=== PATIENT | male | born 1950 | race Caucasian/White ===

== ENCOUNTER 2017-08-20 15:20 | Emergency (ER) | payer MEDICARE ==
[~2017-08-20] VITALS: Ht 180.3 cm; Wt 111.0 kg
[2017-08-20] MEDS ORDERED: normal saline 1000ML IV soln IVB ONE (15:30)
[2017-08-20 15:55] LABS: BASOPHILS % (AUTO) 0.3 % (0-1); EOSINOPHILS # (AUTO) 0.2 X10'3 (0-0.9); EOSINOPHILS % (AUTO) 1.8 % (0-6); HEMATOCRIT 58.1 % (42.0-52.0); LYMPHOCYTES # (AUTO) 0.6 X10'3 (1.1-4.8); LYMPHOCYTES % (AUTO) 5.6 % (21-51); MEAN CORPUSCULAR HEMOGLOBIN 30.2 PG (27.0-31.0); MEAN CORPUSCULAR HGB CONC 35.1 % (33.0-36.5); MEAN CORPUSCULAR VOLUME 86.3 FL (78-98); MEAN PLATELET VOLUME 7.2 FL (7.4-10.4); MONOCYTES # (AUTO) 0.3 X10'3 (0-0.9); MONOCYTES % (AUTO) 3.3 % (2-12); NEUTROPHILS # (AUTO) 9.3 X10'3 (1.8-7.7); PLATELET COUNT 248 X10'3 (140-440); RED BLOOD COUNT 6.73 X10'6 (4.70-6.10); RED CELL DISTRIBUTION WIDTH 13.9 % (11.5-14.5); WHITE BLOOD COUNT 10.4 X10'3 (4.5-11.0)
[2017-08-20 15:57] LABS: HEMOGLOBIN 20.4 g/dl (14.0-17.9)
[2017-08-20 16:13] LABS: ALANINE AMINOTRANSFERASE 60 U/L (12-78); ALBUMIN 3.4 G/DL (3.4-5.0); ALBUMIN/GLOBULIN RATIO 0.8 (1.1-1.5); ALKALINE PHOSPHATASE 191 IU/L (46-116); ANION GAP 11 (8-16); ASPARTATE AMINO TRANSFERASE 45 U/L (10-37); BILIRUBIN,TOTAL 1.5 MG/DL (0.1-1.0); BLOOD UREA NITROGEN 25 MG/DL (7-18); BUN/CREATININE RATIO 16.4 (5.4-32.0); CALCIUM 9.2 MG/DL (8.5-10.1); CHLORIDE 98 MMOL/L (99-107); CREATININE 1.52 MG/DL (0.60-1.10); GLUCOSE 255 MG/DL (70-104); MAGNESIUM 1.4 MG/DL (1.5-2.4); PHOSPHORUS 1.9 MG/DL (2.3-4.5); POTASSIUM 4.7 MMOL/L (3.5-5.1); SODIUM 135 MMOL/L (135-145); TOTAL CARBON DIOXIDE 26.1 MMOL/L (24-32); TOTAL PROTEIN 7.7 G/DL (6.4-8.2); TROPONIN I < 0.04 NG/ML (0.0-0.05); eGFR 46 ML/MIN
[2017-08-20] MEDS ORDERED: magnesium 2GM in 50ml NS 50 ML IV ONE (16:15)
[2017-08-20] MEDS ORDERED: calcium acetate 667mg (PhosLO) capsule PO ONE (16:15)
[2017-08-20 17:09] LABS: HEMATOCRIT 55.2 % (42.0-52.0); MEAN CORPUSCULAR HEMOGLOBIN 29.9 PG (27.0-31.0); MEAN CORPUSCULAR HGB CONC 34.4 % (33.0-36.5); MEAN PLATELET VOLUME 7.2 FL (7.4-10.4); PLATELET COUNT 251 X10'3 (140-440); RED BLOOD COUNT 6.35 X10'6 (4.70-6.10); RED CELL DISTRIBUTION WIDTH 13.4 % (11.5-14.5); WHITE BLOOD COUNT 11.1 X10'3 (4.5-11.0)
[2017-08-20 17:50] LABS: CLARITY,URINE CLEAR (Clear); COLOR,URINE YELLOW (Yellow); GLUCOSE, URINE >=1000 mg/dl (Neg); KETONES,URINE NEGATIVE (Neg); LEUKOCYTE ESTERASE ,URINE NEGATIVE (Neg); NITRITES, URINE NEGATIVE (Neg); OCCULT BLOOD,URINE SMALL (Neg); PROTEIN,URINE 100 mg/dl (Neg)
[2017-08-20 17:58] LABS: UA COLLECTION TYPE URINAL
[2017-08-20 17:59] LABS: BACTERIA,URINE NONE SEEN /HPF (Neg); MUCUS STRANDS NONE SEEN /LPF (Neg); RBC,URINE NONE SEEN /HPF (0-2); SQUAMOUS EPITHELIAL CELL,UR FEW /LPF (FEW); WBC,URINE NONE SEEN /HPF (0-4)
[2017-08-20] MEDS ORDERED: labetalol 20mg/4ml (5mg/ml) syringe IV ONE (18:20)
[2017-08-20] MEDS ORDERED: ketorolac trometh. 30mg/ml inj. IV ONE (18:20)
[2017-08-20] MEDS ORDERED: acetaminophen 325mg tablet PO ONE (18:20)
[2017-08-20] MEDS ORDERED: normal saline 1000ml 1,000 ML IV ONE (18:45)
[2017-08-20 19:04] LABS: D-DIMER 0.53 MG/L FEU (0-0.50)
[2017-08-20 19:29] VITALS: BP 155/110
[2017-08-20] MEDS ORDERED: TAM75C PO (19:37)
[2017-08-20] MEDS ORDERED: oseltamivir phos 75mg capsule PO ONE (19:40)
[2017-08-20] MEDS ORDERED: levoFLOXACIN 750MG TABLET PO ONE (22:25)
[2017-08-20] MEDS ORDERED: LEVO750T21 PO (22:26)
== END 2017-08-20 20:17 | disposition home or self-care (01) ==
LOC: ER 15:21
DX: D75.1 Secondary polycythemia (principal); J18.9 Pneumonia, unspecified organism; R53.1 Weakness; I10 Essential (primary) hypertension; E11.9 Type 2 diabetes mellitus without complications; I25.2 Old myocardial infarction; Z79.899 Other long term (current) drug therapy
CPT/HCPCS: 36415; 71045; 80053; 81001; 82948; 83735; 84100; 84484; 85025; 85027; 85379; 87502; 87503; 93005; 96361; 96365; 96375; 99285; J1885; J3475; J3490; J7030

== ENCOUNTER 2019-04-07 15:16 | Inpatient (IN) | payer MEDICARE, OTHER ==
[~2019-04-07] VITALS: Ht 167.6 cm; Wt 101.5 kg
--- NOTE | 2019-04-07 15:43 | NUR ---
awaiting ed provider.
[2019-04-07 15:57] LABS: BASOPHILS # (AUTO) 0.2 X10'3 (0-0.2); EOSINOPHILS # (AUTO) 0.7 X10'3 (0-0.9); HEMATOCRIT 49.1 % (42.0-52.0); HEMOGLOBIN 17.1 g/dl (14.0-17.9); MEAN CORPUSCULAR HEMOGLOBIN 31.3 PG (27.0-31.0); MONOCYTES # (AUTO) 1.1 X10'3 (0-0.9)
[2019-04-07 15:59] LABS: EOSINOPHILS % (AUTO) 3.8 % (0-6); LYMPHOCYTES # (AUTO) 2.5 X10'3 (1.1-4.8); LYMPHOCYTES % (AUTO) 14.4 % (21-51); MEAN CORPUSCULAR HGB CONC 34.9 g/dL (33.0-36.5); MEAN CORPUSCULAR VOLUME 89.7 FL (78-98); MEAN PLATELET VOLUME 7.2 FL (7.4-10.4); MONOCYTES % (AUTO) 6.2 % (2-12); NEUTROPHILS # (AUTO) 12.8 X10'3 (1.8-7.7); NEUTROPHILS % (AUTO) 74.6 % (42-75); PLATELET COUNT 359 X10'3 (140-440); RED BLOOD COUNT 5.48 X10'6 (4.70-6.10); RED CELL DISTRIBUTION WIDTH 13.2 % (11.5-14.5); WHITE BLOOD COUNT 17.2 X10'3 (4.5-11.0)
[2019-04-07] MEDS ORDERED: levoFLOXACIN-Levaquin 750MG/D5 150 ML IV ONE (16:10)
[2019-04-07 16:14] LABS: ALANINE AMINOTRANSFERASE 28 U/L (12-78); ALBUMIN 3.5 G/DL (3.4-5.0); ALBUMIN/GLOBULIN RATIO 0.9 (1.1-1.5); ALKALINE PHOSPHATASE 183 IU/L (46-116); ANION GAP 7 (8-16); ASPARTATE AMINO TRANSFERASE 26 U/L (10-37); BILIRUBIN,TOTAL 0.8 MG/DL (0.1-1.0); BLOOD UREA NITROGEN 26 MG/DL (7-18); BUN/CREATININE RATIO 17.7 (5.4-32.0); CALCIUM 9.3 MG/DL (8.5-10.1); CHLORIDE 100 MMOL/L (99-107); CREATININE 1.47 MG/DL (0.60-1.10); GLUCOSE 168 MG/DL (70-104); POTASSIUM 4.5 MMOL/L (3.5-5.1); SODIUM 136 MMOL/L (135-145); TOTAL CARBON DIOXIDE 28.9 MMOL/L (24-32); TOTAL PROTEIN 7.4 G/DL (6.4-8.2); eGFR 47 ML/MIN
[2019-04-07 16:16] LABS: MAGNESIUM 1.7 MG/DL (1.5-2.4)
--- NOTE | 2019-04-07 16:35 | NUR ---
urine sent to the lab.
[2019-04-07 16:39] LABS: CLARITY,URINE CLEAR (Clear); COLOR,URINE YELLOW (Yellow); GLUCOSE, URINE NEGATIVE (Neg); KETONES,URINE NEGATIVE (Neg); LEUKOCYTE ESTERASE ,URINE NEGATIVE (Neg); NITRITES, URINE NEGATIVE (Neg); OCCULT BLOOD,URINE NEGATIVE (Neg); PROTEIN,URINE 100 mg/dl (Neg)
[2019-04-07 16:43] LABS: UA COLLECTION TYPE CLN CATCH MIDSTREAM
[2019-04-07 16:44] LABS: BACTERIA,URINE NONE SEEN /HPF (Neg); MUCUS STRANDS FEW /LPF (Neg); RBC,URINE NONE SEEN /HPF (0-2); SQUAMOUS EPITHELIAL CELL,UR FEW /LPF (FEW); WBC,URINE 0-4 /HPF (0-4)
[2019-04-07 16:45] LABS: COARSE GRANULAR CAST 0-3 /LPF (NEGATIVE)
[2019-04-07] MEDS ORDERED: METO100T14 PO (17:14)
[2019-04-07] MEDS ORDERED: INSU100V9 SQ (17:14)
[2019-04-07] MEDS ORDERED: RANI150T8 PO (17:14)
[2019-04-07] MEDS ORDERED: AMLO10TA PO (17:14)
[2019-04-07] MEDS ORDERED: ATOR40TA71 PO (17:14)
[2019-04-07] MEDS ORDERED: INSU100C10 SQ (17:14)
[2019-04-07] MEDS ORDERED: ROPI1TAB4 PO (17:14)
[2019-04-07] MEDS ORDERED: LOSA50TA64 PO (17:14)
[2019-04-07] MEDS ORDERED: OXYC-145 PO (17:14)
[2019-04-07] MEDS ORDERED: MESSAGE TO PHARMACY PO ONE (17:30)
[2019-04-07] MEDS ORDERED: ondansetron/PF 4mg/2ml inj IV PRN (17:30)
[2019-04-07] MEDS ORDERED: morphine 2 MG/ML inj. syringe IV PRN ×2 (17:30)
[2019-04-07] MEDS ORDERED: glucagon, human recombinant 1mg kit SUBCUT PRN (17:30)
[2019-04-07] MEDS ORDERED: ondansetron/PF 4mg/2ml inj IV ONE (17:30)
[2019-04-07] MEDS ORDERED: dextrose 50%-water 50ml dispensing syringe IV PRN ×2 (17:30)
[2019-04-07] MEDS ORDERED: morphine 4 MG/ML inj SYRINge IV ONE (17:30)
[2019-04-07] MEDS ORDERED: mag hydrox/Alum hydrox/simeth 30ml oral suspension PO PRN (17:30)
[2019-04-07] MEDS ORDERED: acetaminophen 325mg tablet PO PRN (17:30)
[2019-04-07] MEDS ORDERED: dextrose ORAL solution 15 GM/59 ML bottle PO PRN ×2 (17:30)
[2019-04-07] MEDS ORDERED: magnesium hydroxide 30ml (MOM) UD suspension PO PRN (17:30)
[2019-04-07 18:47] LABS: HEMOGLOBIN A1C 7.2 % (4.5-6.2)
--- NOTE | 2019-04-07 18:52 | NUR ---
PT STATES THAT HE TAKES 54 UNITS LANTUS IN THE MORNING AND THEN AND ADDITIONAL 15 UNITS AFTER BREAKFAST.
[2019-04-07] MEDS: acetaminophen 325mg tablet PO PRN (19:06)
--- NOTE | 2019-04-07 19:46 | NUR ---
Received report from Светлана GALINDO pt arrived via gurney, ambulated to bed, put pt on 3L of O2 via NC, oriented pt to room, performed two electrical contacts adjuster
[2019-04-07 20:09] VITALS: BP 150/76
[2019-04-07] MEDS: insulin glargine (Lantus) pen - multi-dose SQ SCH (21:00)
[2019-04-07] MEDS: HYDROcodone/acetaminophen 5mg/325mg tablet PO PRN (21:23)
[2019-04-08] VITALS: BP 97/59
[2019-04-08 05:25] LABS: BASOPHILS # (AUTO) 0.1 X10'3 (0-0.2); BASOPHILS % (AUTO) 0.5 % (0-1); EOSINOPHILS # (AUTO) 0.7 X10'3 (0-0.9); EOSINOPHILS % (AUTO) 6.3 % (0-6); HEMATOCRIT 41.1 % (42.0-52.0); HEMOGLOBIN 14.6 g/dl (14.0-17.9); LYMPHOCYTES # (AUTO) 2.7 X10'3 (1.1-4.8); LYMPHOCYTES % (AUTO) 23.5 % (21-51); MEAN CORPUSCULAR HEMOGLOBIN 31.6 PG (27.0-31.0); MEAN CORPUSCULAR HGB CONC 35.4 g/dL (33.0-36.5); MEAN CORPUSCULAR VOLUME 89.1 FL (78-98); MEAN PLATELET VOLUME 7.3 FL (7.4-10.4); MONOCYTES # (AUTO) 0.9 X10'3 (0-0.9); NEUTROPHILS # (AUTO) 7.2 X10'3 (1.8-7.7); NEUTROPHILS % (AUTO) 61.7 % (42-75); PLATELET COUNT 261 X10'3 (140-440); RED BLOOD COUNT 4.61 X10'6 (4.70-6.10); RED CELL DISTRIBUTION WIDTH 13.1 % (11.5-14.5); WHITE BLOOD COUNT 11.6 X10'3 (4.5-11.0)
[2019-04-08 05:29] LABS: ALBUMIN 2.7 G/DL (3.4-5.0); ANION GAP 7 (8-16); BLOOD UREA NITROGEN 29 MG/DL (7-18); CHLORIDE 102 MMOL/L (99-107); CREATININE 1.45 MG/DL (0.60-1.10); GLUCOSE 134 MG/DL (70-104); POTASSIUM 4.4 MMOL/L (3.5-5.1); SODIUM 136 MMOL/L (135-145); TOTAL CARBON DIOXIDE 27.1 MMOL/L (24-32); eGFR 48 ML/MIN
--- NOTE | 2019-04-08 06:38 | NUR ---
Gave report to Alpesh GALINDO pt is sitting on side of bed on 2.5L of O2 via NC
--- NOTE | 2019-04-08 06:40 | NUR ---
Patient in room [facility]. I have received report from Kindra GALINDO and had the opportunity to ask questions and assume patient care.
[2019-04-08 08:00] VITALS: BP 162/78
[2019-04-08] MEDS ORDERED: levoFLOXACIN-Levaquin 750MG/D5 150 ML IV SCH (08:00)
--- NOTE | 2019-04-08 09:03 | NUR ---
promotional table spacer PAGER ID: [phone] MESSAGE: RE: ROOM 340B ЮлияJon arteaga Please address med rec. Pt requesting home meds. Thank you Alpesh GALINDO [phone]
[2019-04-08] MEDS: enoxaparin 40mg/0.4ml syringe SUBCUT SCH (09:12)
[2019-04-08 11:00] VITALS: BP 144/72
[2019-04-08] MEDS ORDERED: oxyCODONE/APAP 5-325mg tablet PO PRN (11:05)
[2019-04-08] MEDS: ROPINIRole 1mg tablet PO SCH ×2 (15:57→19:29)
[2019-04-08] MEDS: insulin Lispro (HumaLOG) vial - multi-dose SQ SCH (18:08)
--- NOTE | 2019-04-08 18:34 | NUR ---
Patient in room [facility]. I have received report from SRINIVAS GALINDO and had the opportunity to ask questions and assume patient care. Addendum: 04/08/19 at 1834 by Madelin Lewis RN Amended: Links added.
--- NOTE | 2019-04-08 18:34 | NUR ---
Problems reprioritized. Patient report given, questions answered & plan of care reviewed with Madelin GALINDO.
[2019-04-08] MEDS: furosemide 20 MG/2 ML vial IV SCH (19:27)
[2019-04-08] MEDS: famotidine 20mg tablet PO SCH (19:29)
[2019-04-08] MEDS: lactobacillus rhamnosus 10,000 MMU CELLS/CAPSULE PO SCH (19:29)
[2019-04-08] MEDS: metoprolol tartrate 50mg tablet PO SCH (19:31)
[2019-04-08 20:00] VITALS: BP 133/81
[2019-04-08] MEDS ORDERED: ROPINIRole 1mg tablet PO SCH (20:00)
--- NOTE | 2019-04-08 20:35 | NUR ---
Dr Cross called pt sob with exertion and sitting edge of bed. heasrt rate 120"-140's due to this recieved Rt order of zopinex 0.63 Q6 prn
--- NOTE | 2019-04-08 21:25 | NUR ---
Rt in to evaluate pt and due tx.
[2019-04-08] MEDS: insulin glargine (Lantus) pen - multi-dose SQ SCH (22:00)
[2019-04-08] MEDS: losartan 50mg tablet PO SCH (22:01)
[2019-04-08] MEDS: HYDROcodone/acetaminophen 5mg/325mg tablet PO PRN (22:06)
--- NOTE | 2019-04-08 22:08 | NUR ---
pt mredicated for pain 09/16. tele said heart rate in 90's at this time.
--- NOTE | 2019-04-08 22:11 | NUR ---
PT SAT UP TO VOID HEART RATE WENT UP TO 130-140"S WITH THIS.
--- NOTE | 2019-04-08 23:27 | NUR ---
dR Britton PAGED AND ORDER FOR STRAIGHT CATH RECIEVED FOR THIS PT BLADDER SCAN OF [phone] IN THERE. PT UNABLE TO PEE AND EVERYTIME HE DOES OR ATTEMPTS HEART RATE INCREASES.
--- NOTE | 2019-04-08 23:29 | NUR ---
PT STRAIGHT CATH AT THIS TIME.
--- NOTE | 2019-04-08 23:42 | NUR ---
STRAIGHT CATH GOT 400 URINE OUT.
[2019-04-09] VITALS: BP 128/76
--- NOTE | 2019-04-09 01:25 | NUR ---
pt resting eyes closed without s&s of distress.
[2019-04-09] MEDS: levalbuterol 0.63mg/3ml nebule IH SCH ×4 (02:35→21:04)
--- NOTE | 2019-04-09 03:15 | NUR ---
pt per request put on bedpan and another warm pack made for the back of his neck. pt stated that it really helped. Addendum: 04/09/19 at 0316 by Madelin Lewis RN entry on wrong pt. resting eyes closed without changes. Addendum: 04/09/19 at 0419 by Madelin Lewis RN wring pt.
--- NOTE | 2019-04-09 03:35 | NUR ---
pt unable to void bladder scanned 250cc in there. will recheck later on void and rescan.
--- NOTE | 2019-04-09 05:50 | NUR ---
lab in pt unable to pee. scanned 459cc urine. straight cath done obtained 475. pt tolerated well. will report this to dayshift.
--- NOTE | 2019-04-09 06:17 | NUR ---
Patient in room [facility]. I have received report from sulema GALINDO and had the opportunity to ask questions and assume patient care.
[2019-04-09 06:57] LABS: BASOPHILS # (AUTO) 0.1 X10'3 (0-0.2); BASOPHILS % (AUTO) 0.5 % (0-1); EOSINOPHILS # (AUTO) 0.7 X10'3 (0-0.9); EOSINOPHILS % (AUTO) 6.4 % (0-6); HEMATOCRIT 42.3 % (42.0-52.0); HEMOGLOBIN 14.7 g/dl (14.0-17.9); LYMPHOCYTES # (AUTO) 2.3 X10'3 (1.1-4.8); LYMPHOCYTES % (AUTO) 21.3 % (21-51); MEAN CORPUSCULAR HEMOGLOBIN 31.3 PG (27.0-31.0); MEAN CORPUSCULAR HGB CONC 34.7 g/dL (33.0-36.5); MEAN CORPUSCULAR VOLUME 90.3 FL (78-98); MEAN PLATELET VOLUME 7.5 FL (7.4-10.4); MONOCYTES # (AUTO) 0.9 X10'3 (0-0.9); MONOCYTES % (AUTO) 8.6 % (2-12); NEUTROPHILS # (AUTO) 6.9 X10'3 (1.8-7.7); NEUTROPHILS % (AUTO) 63.2 % (42-75); PLATELET COUNT 276 X10'3 (140-440); RED BLOOD COUNT 4.69 X10'6 (4.70-6.10); WHITE BLOOD COUNT 10.9 X10'3 (4.5-11.0)
[2019-04-09 07:00] VITALS: BP 113/59
[2019-04-09 07:08] LABS: ALBUMIN 2.8 G/DL (3.4-5.0); ANION GAP 7 (8-16); BLOOD UREA NITROGEN 28 MG/DL (7-18); BUN/CREATININE RATIO 18.9 (5.4-32.0); CALCIUM 8.6 MG/DL (8.5-10.1); CHLORIDE 101 MMOL/L (99-107); CREATININE 1.48 MG/DL (0.60-1.10); GLUCOSE 125 MG/DL (70-104); POTASSIUM 4.5 MMOL/L (3.5-5.1); SODIUM 136 MMOL/L (135-145); TOTAL CARBON DIOXIDE 27.8 MMOL/L (24-32); eGFR 47 ML/MIN
--- NOTE | 2019-04-09 07:10 | NUR ---
Problems reprioritized. Patient report given, questions answered & plan of care reviewed with Payal Castillo. Addendum: 04/09/19 at 0711 by Madelin Lewis RN Amended: Links added.
[2019-04-09] MEDS: furosemide 20 MG/2 ML vial IV SCH ×2 (07:31→19:35)
[2019-04-09] MEDS: lactobacillus rhamnosus 10,000 MMU CELLS/CAPSULE PO SCH ×2 (07:32→19:35)
[2019-04-09] MEDS: famotidine 20mg tablet PO SCH ×2 (07:32→19:34)
[2019-04-09] MEDS: metoprolol tartrate 50mg tablet PO SCH ×2 (07:40→19:49)
[2019-04-09] MEDS: atorvastatin 20mg tablet PO SCH (07:41)
[2019-04-09] MEDS: enoxaparin 40mg/0.4ml syringe SUBCUT SCH (07:42)
[2019-04-09 08:00] VITALS: BP 154/78
[2019-04-09 11:00] VITALS: BP 135/75
[2019-04-09] MEDS: tamsulosin 0.4mg capsule PO SCH (11:52)
--- NOTE | 2019-04-09 13:09 | NUR ---
patient seen by Dr English , commenced on flomax for BPH. will continue all other cares. Managing to Void per urinal.
--- NOTE | 2019-04-09 13:14 | NUR ---
Problems reprioritized. Patient report given, questions answered & plan of care reviewed with Brynn GALINDO.
[2019-04-09] MEDS: insulin Lispro (HumaLOG) vial - multi-dose SQ SCH ×2 (13:26→18:24)
--- NOTE | 2019-04-09 13:29 | NUR ---
Patient in room [facility]. I have received report from Payal GALINDO and had the opportunity to ask questions and assume patient care.
[2019-04-09 18:00] VITALS: BP 137/76
--- NOTE | 2019-04-09 18:25 | NUR ---
Problems reprioritized. Patient report given, questions answered & plan of care reviewed with Torey GALINDO.
--- NOTE | 2019-04-09 18:49 | NUR ---
Patient in room [facility]. I have received report from JOSIE Hardin and had the opportunity to ask questions and assume patient care.
[2019-04-09] MEDS: acetaminophen 325mg tablet PO PRN (19:01)
[2019-04-09] MEDS: ROPINIRole 1mg tablet PO SCH (19:33)
--- NOTE | 2019-04-09 20:00 | NUR ---
Patients hand and feet look edematous.Patient states; They have always looked like this. I take after my dad." Addendum: 04/10/19 at 0008 by Torey Woods RN Amended: Links added.
[2019-04-09] MEDS: insulin glargine (Lantus) pen - multi-dose SQ SCH (20:50)
[2019-04-09] MEDS: losartan 50mg tablet PO SCH (20:51)
[2019-04-09 23:54] VITALS: BP 112/64
[2019-04-10] MEDS: levalbuterol 0.63mg/3ml nebule IH SCH ×2 (03:54→08:59)
[2019-04-10 05:22] LABS: BASOPHILS # (AUTO) 0.1 X10'3 (0-0.2); BASOPHILS % (AUTO) 0.9 % (0-1); EOSINOPHILS # (AUTO) 0.8 X10'3 (0-0.9); HEMATOCRIT 42.8 % (42.0-52.0); LYMPHOCYTES # (AUTO) 2.4 X10'3 (1.1-4.8); LYMPHOCYTES % (AUTO) 21.3 % (21-51); MEAN CORPUSCULAR HEMOGLOBIN 31.4 PG (27.0-31.0); MEAN CORPUSCULAR HGB CONC 35.1 g/dL (33.0-36.5); MEAN CORPUSCULAR VOLUME 89.4 FL (78-98); MEAN PLATELET VOLUME 7.6 FL (7.4-10.4); MONOCYTES % (AUTO) 8.7 % (2-12); NEUTROPHILS % (AUTO) 62.1 % (42-75); PLATELET COUNT 253 X10'3 (140-440); RED BLOOD COUNT 4.78 X10'6 (4.70-6.10); RED CELL DISTRIBUTION WIDTH 12.7 % (11.5-14.5); WHITE BLOOD COUNT 11.3 X10'3 (4.5-11.0)
[2019-04-10 05:30] LABS: ALBUMIN 2.9 G/DL (3.4-5.0); ANION GAP 7 (8-16); BLOOD UREA NITROGEN 33 MG/DL (7-18); BUN/CREATININE RATIO 20.1 (5.4-32.0); CALCIUM 8.9 MG/DL (8.5-10.1); CHLORIDE 101 MMOL/L (99-107); CREATININE 1.64 MG/DL (0.60-1.10); GLUCOSE 141 MG/DL (70-104); POTASSIUM 4.4 MMOL/L (3.5-5.1); SODIUM 136 MMOL/L (135-145); TOTAL CARBON DIOXIDE 27.6 MMOL/L (24-32); eGFR 42 ML/MIN
[2019-04-10] MEDS: acetaminophen 325mg tablet PO PRN (06:16)
--- NOTE | 2019-04-10 06:37 | NUR ---
Problems reprioritized. Patient report given, questions answered & plan of care reviewed with JOSIE Maharaj.
--- NOTE | 2019-04-10 06:52 | NUR ---
Patient in room [facility]. I have received report from JOSIE thomas and had the opportunity to ask questions and assume patient care.
[2019-04-10 07:00] VITALS: BP 101/65
[2019-04-10 07:31] VITALS: BP 101/65
[2019-04-10] MEDS: furosemide 20 MG/2 ML vial IV SCH (07:52)
[2019-04-10] MEDS: tamsulosin 0.4mg capsule PO SCH (07:53)
[2019-04-10] MEDS: lactobacillus rhamnosus 10,000 MMU CELLS/CAPSULE PO SCH (07:53)
[2019-04-10] MEDS: famotidine 20mg tablet PO SCH (07:53)
[2019-04-10] MEDS: atorvastatin 20mg tablet PO SCH (07:53)
[2019-04-10] MEDS: metoprolol tartrate 50mg tablet PO SCH (07:57)
[2019-04-10] MEDS: enoxaparin 40mg/0.4ml syringe SUBCUT SCH (07:58)
[2019-04-10] MEDS ORDERED: levoFLOXACIN-Levaquin 750MG/D5 150 ML IV SCH (08:00)
[2019-04-10] MEDS: ROPINIRole 1mg tablet PO SCH (08:01)
[2019-04-10] MEDS: insulin Lispro (HumaLOG) vial - multi-dose SQ SCH (09:11)
[2019-04-10] MEDS: HYDROcodone/acetaminophen 5mg/325mg tablet PO PRN (09:19)
[2019-04-10] MEDS ORDERED: LEVO750T21 PO (09:20)
[2019-04-10] MEDS ORDERED: tamsulosin capsule PO (09:20)
[2019-04-10] MEDS ORDERED: FURO40TA4 PO (09:20)
[2019-04-10 11:00] VITALS: BP 90/50
== END 2019-04-10 12:50 | disposition home or self-care (01) | DRG 291 ==
LOC: ER 15:17 → ED HOLD 17:27 → SUR 3N 19:14
PROVIDERS: ADMIT Internal Medicine; ATTEND Internal Medicine
DX: I13.0 Hypertensive heart and chronic kidney disease with heart failure and stage 1 through stage 4 chronic kidney disease, or unspecified chronic kidney disease (principal); J18.9 Pneumonia, unspecified organism; J96.01 Acute respiratory failure with hypoxia; E11.22 Type 2 diabetes mellitus with diabetic chronic kidney disease; I50.813 Acute on chronic right heart failure; N18.3 Chronic kidney disease, stage 3 (moderate); E66.9 Obesity, unspecified; I25.10 Atherosclerotic heart disease of native coronary artery without angina pectoris; I50.9 Heart failure, unspecified; G25.81 Restless legs syndrome; E11.65 Type 2 diabetes mellitus with hyperglycemia; E78.5 Hyperlipidemia, unspecified; G89.29 Other chronic pain; Z95.5 Presence of coronary angioplasty implant and graft; Z68.36 Body mass index [BMI] 36.0-36.9, adult; I25.2 Old myocardial infarction; Z88.8 Allergy status to other drugs, medicaments and biological substances; Z79.4 Long term (current) use of insulin; Z79.899 Other long term (current) drug therapy; Z83.3 Family history of diabetes mellitus
CPT/HCPCS: 36415; 71045; 80048; 80053; 81001; 82948; 83036; 83605; 83735; 83880; 84145; 84484; 85025; 85379; 87040; 87081; 93005; 93306; 93970; 94640; 94667; 94760; 96365; 97116; 97161; 97530; 99285; G0378; J1650; J1815; J1940; J1956; J2270; J2405; J7614